=== PATIENT | female | born 1970 | race Caucasian/White ===

== ENCOUNTER 2021-01-04 16:13 | Inpatient (IN) | payer OTHER ==
[~2021-01-04] VITALS: Ht 165.1 cm; Wt 86.2 kg
[2021-01-04] MEDS ORDERED: FEMARA2.5 MG PO (16:49)
[2021-01-04] MEDS ORDERED: FOLIC ACID20 MG PO (16:51)
[2021-01-04] MEDS ORDERED: METOTREXATE PO (16:51)
[2021-01-04] MEDS ORDERED: PROTONIX40 MG PO (16:52)
[2021-01-04] MEDS ORDERED: HUMIRA PEN40 MG/0.2 (16:52)
[2021-01-04] MEDS ORDERED: PEPCID AC20 MG PO (16:53)
--- NOTE | 2021-01-04 16:53 | NUR ---
SE RECIBE PTE AMBULANDO ALERTA Y ORIENTADA X3 QUIEN REFIERE PRESENTAR DOLOR AMBDOMINAL CON EVOLUCION DE ANSHUL SEMANA. PACIENTE INDICA QUE EL DOLOR ES PERSISTENTEY QUE CORONA TOMADO MEDICAMENTOS PARA EL ESTOMAGO AZAR AUN CONTINUA CON DOLOR. NIEGA WAGNER PRESENTADO VOMITOS. SE UBICA EN AREA DE OBSERVACION PARA EVALUACION MEDICA.
--- NOTE | 2021-01-04 18:09 | NUR ---
PTE FEMENINA ALERTA Y ORIENTADA EN LAS OSCAR ESFERAS ES EVALUADA POR . SE ORIENTA SOBRE ORDENES DE [place] REFIERE COMPRENDER. SE CANALIZA VENA Y SE COLECTAN MUESTRAS DE LABORATORIO, BAJO MEDIDAS ASEPTICAS. SE ADMINISTRAN MEDICAMENTOS, BAJO MEDIDAS ASEPTICAS. SE NOTIFICA A RADIOLOGIA PARA CT.
--- NOTE | 2021-01-04 23:41 | NUR ---
PTE ALERTA Y ORIENTADA X 3 ESFERAS EN JOSE CON BARANDAS ELEVADAS,EN COMPANIA DE FAMILIAR.NO REFIERE DOLOR AL MOMENTO.AREA DE VENOPUNCION PATENTE Y ORALIA DE EDEMA CON FLUIDOS DE MANTENIMIENTO BAJANDO SIN DIFICULTAD.PENDIENTE A EVALUACION DE DR GONZALEZ.SE NATASHA BAJO OBSERVACION POR CAMBIOS.
--- NOTE | 2021-01-05 07:26 | NUR ---
SE RECIBE PACIENTE ALERTA Y ORIENTADA. SE OBSERVA IV PATENTE, ORALIA DE EDEMA Y/O ENROJECIMIENTO. SE OBSERVA ACOSTADA, CON CAMA A NIVEL BAJO, CON BARANDAS ELEVADAS Y CON ZHENG DE IDENTIFICACION. SE MANTIENE BAJO OBSERVACION POR CAMBIOS. PENDIENTE CONSULTA CON DR. GONZALEZ.
== END 2021-01-08 16:59 | disposition home or self-care (01) | DRG 440 ==
LOC: ER 16:13 → SEC-K 01-05 10:39 → MEDI 01-05 10:39
PROVIDERS: ADMIT Internal Medicine; ATTEND Internal Medicine
PROC: BW21ZZZ Computerized Tomography (CT Scan) of Abdomen and Pelvis (ICD-10-PCS; principal; 2021-01-05)
DX: K85.80 Other acute pancreatitis without necrosis or infection (principal); M45.9 Ankylosing spondylitis of unspecified sites in spine; Z20.822 Contact with and (suspected) exposure to COVID-19

== ENCOUNTER 2022-04-28 11:23 | Emergency (ER) | payer OTHER ==
[~2022-04-28] VITALS: Ht 165.1 cm; Wt 77.1 kg
[~2022-04-28 11:23] MED LIST: FEMARA2.5 MG PO; FOLIC ACID20 MG PO; HUMIRA PEN40 MG/0.2; METOTREXATE PO; PEPCID AC20 MG PO; PROTONIX40 MG PO
== END 2022-04-28 16:16 | disposition home or self-care (01) ==
LOC: ER 11:23
DX: R10.13 Epigastric pain (principal); E86.0 Dehydration; I10 Essential (primary) hypertension

== ENCOUNTER 2024-11-14 17:31 | Emergency (ER) | payer OTHER ==
[~2024-11-14] VITALS: Ht 165.1 cm; Wt 77.6 kg
[2024-11-14] MEDS ORDERED: CRESTOR40 MG PO (17:47)
[2024-11-14 17:48] VITALS: BP 109/65; O2SAT 100
[2024-11-14] MEDS ORDERED: FEMARA2.5 MG PO (17:48)
[2024-11-14] MEDS ORDERED: FAMOTIDINE/PF 20 MG/2 ML VIAL IV ONE (19:45)
[2024-11-14] MEDS ORDERED: ONDANSETRON HCL 2 MG/ML VIAL IV ONE (19:45)
[2024-11-14] MEDS ORDERED: ONDANSETRON HCL 2 MG/ML VIAL ONE (20:48)
[2024-11-14] MEDS ORDERED: FAMOTIDINE/PF 20 MG/2 ML VIAL ONE (20:48)
[2024-11-14 21:02] LABS: HEMATOCRIT 43.3 % (36.0-45.00); HEMOGLOBIN 14.5 g/dL (12.0-15.00); MEAN CELL VOLUME 80.9 fL (80.00-100.00); MEAN CORPUSCULAR HEMOGLOBIN 27.1 pg (27.00-32.0); MEAN CORPUSCULAR HGB CONC 33.5 g/dl (32.0-36.0); PLATELET COUNT 226 K/uL (150-450); RED BLOOD COUNT 5.35 M/uL (4.00-6.00)
[2024-11-14 21:38] LABS: ALBUMIN 3.9 gm/dL (3.4-5.0); BILIRUBIN TOTAL 0.44 mg/dL (0.3-1.2); CALCIUM 9.4 mg/dL (8.5-10.1); CREATININE SERUM 0.8 mg/dL (0.55-1.02); GFR 75.03; GLOBULINA 4.8 G/DL (2.4-3.5); POTASSIUM 3.94 mEq/L (3.5-5.1); TOTAL PROTEIN 8.7 gm/dL (6.4-8.2)
== END 2024-11-15 02:48 | disposition home or self-care (01) ==
LOC: ER 17:34
PROVIDERS: Emergency Medicine
DX: R12 Heartburn (principal); R10.9 Unspecified abdominal pain